=== PATIENT | male | born 1990 | race African-American/Black ===

== ENCOUNTER 2017-07-01 08:40 | Emergency (ER) | payer MEDICAID ==
[~2017-07-01] VITALS: Ht 182.9 cm; Wt 79.5 kg
[2017-07-01 10:13] VITALS: BP 142/72
[2017-07-01] MEDS ORDERED: CYANOCOBALAMIN 1,000 MCG/ML VIAL IM ONE (10:15)
[2017-07-01] MEDS ORDERED: THIAMINE HCL 100 MG/ML 2ML VIAL IM ONE (10:15)
== END 2017-07-01 10:55 | disposition home or self-care (01) ==
LOC: EMS 08:43
DX: Z00.00 Encounter for general adult medical examination without abnormal findings (principal); F10.21 Alcohol dependence, in remission; Z88.1 Allergy status to other antibiotic agents
CPT/HCPCS: 96372; 99284; J3411; J3420